=== PATIENT | female | born 1955 | race Caucasian/White ===

== ENCOUNTER → 2018-06-07 | Outpatient (CLI) | payer BC ==
[~2018-06-07] MED LIST: A-B OTIC EAR DR15 ML EACH EAR; AMOXICILLIN500 MG PO; ASTEPRO205.5 MCG/ INH; LANTUS100 UNITS/ SC; LIDOCAINE VISC 2% SOLN 15 ML UDC ONE; MECLIZINE HCL12.5 MG PO; NOVOLOG100 UNITS/ SC; PHENERGAN25 MG/1 ML PO; SINGULAIR10 MG PO; SYNTHROID112 MCG PO; VITAMIN D3 1,01 EACH PO; ZYRTEC-D TABLE1 EACH PO
== END ==
LOC: WCC 12:05
PROVIDERS: ATTEND Podiatrist Foot & Ankle Surgery
DX: E11.621 Type 2 diabetes mellitus with foot ulcer (principal); L97.429 Non-pressure chronic ulcer of left heel and midfoot with unspecified severity; E03.9 Hypothyroidism, unspecified; J45.909 Unspecified asthma, uncomplicated; E66.8 Other obesity
CPT/HCPCS: 36415; 82948

== ENCOUNTER → 2018-06-14 | Outpatient (CLI) | payer BC ==
[~2018-06-14] MED LIST changes: -LIDOCAINE VISC 2% SOLN 15 ML UDC ONE
== END ==
LOC: WCC 10:16
PROVIDERS: ATTEND Podiatrist Foot & Ankle Surgery
DX: E11.621 Type 2 diabetes mellitus with foot ulcer (principal); L97.429 Non-pressure chronic ulcer of left heel and midfoot with unspecified severity; E03.9 Hypothyroidism, unspecified; E66.8 Other obesity; J45.909 Unspecified asthma, uncomplicated

== ENCOUNTER → 2018-06-28 | Outpatient (CLI) | payer BC | LOC: WCC 09:55 | PROVIDERS: ATTEND Podiatrist Foot & Ankle Surgery | DX: E11.621 Type 2 diabetes mellitus with foot ulcer (principal); L89.622 Pressure ulcer of left heel, stage 2; I87.2 Venous insufficiency (chronic) (peripheral); R60.9 Edema, unspecified; E03.9 Hypothyroidism, unspecified; E66.8 Other obesity; J45.909 Unspecified asthma, uncomplicated; Z74.01 Bed confinement status ==

== ENCOUNTER → 2018-07-05 | Outpatient (CLI) | payer BC | LOC: WCC 12:31 | PROVIDERS: ATTEND Family Medicine Adult Medicine | DX: E11.621 Type 2 diabetes mellitus with foot ulcer (principal); L89.622 Pressure ulcer of left heel, stage 2; R60.9 Edema, unspecified; J44.9 Chronic obstructive pulmonary disease, unspecified; E03.9 Hypothyroidism, unspecified; E66.8 Other obesity; J45.909 Unspecified asthma, uncomplicated; Z74.01 Bed confinement status ==

== ENCOUNTER → 2018-08-02 | Outpatient (CLI) | payer BC ==
[~2018-08-02] MED LIST changes: +LIDOCAINE/PRILOCAINE 2.5-2.5% KIT ONE
== END ==
LOC: WCC 09:17
PROVIDERS: ATTEND Family Medicine Adult Medicine
DX: E11.621 Type 2 diabetes mellitus with foot ulcer (principal); L89.622 Pressure ulcer of left heel, stage 2; R60.9 Edema, unspecified; J44.9 Chronic obstructive pulmonary disease, unspecified; E03.9 Hypothyroidism, unspecified; J45.909 Unspecified asthma, uncomplicated; E66.8 Other obesity; Z74.01 Bed confinement status